=== PATIENT | male | born 1975 | race African-American/Black ===

== ENCOUNTER 2019-07-21 13:14 | Emergency (ER) | payer MEDICAID ==
[~2019-07-21] VITALS: Ht 182.9 cm; Wt 141.0 kg
[2019-07-21] MEDS ORDERED: AMLODIPINE 10MG TABLET PO ONE (14:45)
[2019-07-21 15:26] LABS: BASOPHILS % 0.9 % (0.0-2.0); HEMATOCRIT. 42.7 % (42.0-52.0); HEMOGLOBIN. 14.6 g/dL (14.0-18.0); MEAN CORPUSCULAR HEMOGLOBIN 27.7 pg (28.0-32.0); MEAN CORPUSCULAR VOLUME 80.9 fL (80.0-94.0); MEAN PLATELET VOLUME 8.7 fl (7.4-10.4); MONOCYTES % 6.6 % (2.0-8.0); NEUTROPHILS % 49.5 % (40.0-76.0); PLATELET 240 x1000/uL (130-400); RED BLOOD CELL COUNT 5.28 mill/uL (4.7-6.1); RED CELL DISTRIBUTION WIDTH 14.1 % (11.6-14.6)
[2019-07-21 15:27] LABS: CHLORIDE 104 mEq/L (98-107)
[2019-07-21] MEDS ORDERED: LABETALOL 5MG/ML SYR 20 MG/4 ML SYRINGE IV ONE ×2 (17:00→18:45)
[2019-07-21] MEDS ORDERED: IOHEXOL-350 100 ML BOTTLE ONE (18:27)
[2019-07-21] MEDS ORDERED: ASPIRIN 81MG TABLET PO ONE (19:15)
[2019-07-21 22:15] VITALS: BP 144/80
== END 2019-07-21 22:28 | disposition short-term general hospital (02) ==
LOC: ER 13:14 → CANBEDREQ 22:52
DX: I10 Essential (primary) hypertension (principal); Z88.0 Allergy status to penicillin
CPT/HCPCS: 36415; 71045; 71275; 80053; 83880; 84484; 85025; 93005; 96374; 96376; 99285; J3490; Q9967; Z7610